=== PATIENT | female | born 1990 | race Caucasian/White ===

== ENCOUNTER 2021-10-31 06:53 | Inpatient (IN) | payer BC ==
[~2021-10-31 06:53] MED LIST: Lidocaine 1.5% with EPINEPHrine 1:200,000 5 ML Amp ONE
[2021-10-31] MEDS ORDERED: Ondansetron 4 MG/2 ML SDV IVPUSH PRN (07:49)
[2021-10-31] MEDS ORDERED: Acetaminophen 325 MG Tab PO PRN (07:49)
[2021-10-31] MEDS ORDERED: Lidocaine 1% 50 ML MDV INJECT ONE (07:49)
[2021-10-31] MEDS ORDERED: Nalbuphine 10 MG/1 ML Vial IVPUSH PRN (07:49)
[2021-10-31] MEDS ORDERED: Oxytocin/Lactated Ringers 10 UNIT/1,000 ML BAG IV SCH ×2 (08:00)
[2021-10-31] MEDS ORDERED: fentaNYL 100 MCG/2 ML SDV EPIDUR PRN (08:27)
[2021-10-31] MEDS ORDERED: diphenhydrAMINE 50 MG/ML SDV IVPUSH PRN (08:27)
[2021-10-31] MEDS ORDERED: ePHEDrine 50 MG/ML SDV IVPUSH PRN (08:27)
[2021-10-31] MEDS: Lactated Ringers 1,000 ML IV SCH ×3 (08:36→15:48)
[2021-10-31] MEDS ORDERED: Sodium Chloride 0.9% 10 ML Syringe FLUSH SCH (09:00)
[2021-10-31] MEDS: Bupivacaine/fentaNYL/NS 100 ML Bag EPIDUR PRN ×2 (14:12→22:30)
[2021-10-31] MEDS ORDERED: Benzocaine/Menthol 20%-0.5% Spray 78 GM Cannister TOP PRN (23:27)
[2021-10-31] MEDS: Witch Hazel Medicated Pads 40/Jar TOP PRN (23:55)
[2021-10-31] MEDS: Ibuprofen 600 MG Tab PO PRN (23:56)
[2021-11-01] MEDS: Ibuprofen 600 MG Tab PO PRN ×3 (04:10→20:20)
[2021-11-01] MEDS: Acetaminophen 325 MG Tab PO PRN ×3 (04:10→23:02)
[2021-11-01] MEDS ORDERED: Ferrous Sulfate 324 MG Tab.EC PO SCH (09:00)
[2021-11-01] MEDS: Docusate Sodium 100 MG Cap PO SCH ×2 (15:36→20:21)
[2021-11-01] MEDS: Prenatal Multivitamin with Calcium/Folic Acid/Iron Tab PO SCH (15:36)
[2021-11-01] MEDS ORDERED: Montelukast 10 MG Tab PO SCH (21:00)
[2021-11-02] MEDS: Ibuprofen 600 MG Tab PO PRN (06:59)
[2021-11-02] MEDS: Witch Hazel Medicated Pads 40/Jar TOP PRN (08:35)
[2021-11-02] MEDS: Prenatal Multivitamin with Calcium/Folic Acid/Iron Tab PO SCH (13:41)
[2021-11-02] MEDS: Docusate Sodium 100 MG Cap PO SCH (13:41)
== END 2021-11-02 12:15 | disposition home or self-care (01) | DRG 560 ==
LOC: JD.OB 06:53 → OBSVTOIN 22:44 → JD.OB 22:44
PROVIDERS: ADMIT Obstetrics & Gynecology; ATTEND Obstetrics & Gynecology
PROC: 10E0XZZ Delivery of Products of Conception, External Approach (ICD-10-PCS; principal; 2021-10-31)
PROC: 10907ZC Drainage of Amniotic Fluid, Therapeutic from Products of Conception, Via Natural or Artificial Opening (ICD-10-PCS; 2021-10-31)
PROC: 3E033VJ Introduction of Other Hormone into Peripheral Vein, Percutaneous Approach (ICD-10-PCS; 2021-10-31)
PROC: 0W8NXZZ Division of Female Perineum, External Approach (ICD-10-PCS; 2021-10-31)
PROC: 3E0R3BZ Introduction of Anesthetic Agent into Spinal Canal, Percutaneous Approach (ICD-10-PCS; 2021-10-31)
PROC: 00HU33Z Insertion of Infusion Device into Spinal Canal, Percutaneous Approach (ICD-10-PCS; 2021-10-31)
DX: O99.344 Other mental disorders complicating childbirth (principal); Z37.0 Single live birth; O98.52 Other viral diseases complicating childbirth; U07.1 COVID-19; F41.9 Anxiety disorder, unspecified; F32.A Depression, unspecified; O99.214 Obesity complicating childbirth; O99.52 Diseases of the respiratory system complicating childbirth; J45.909 Unspecified asthma, uncomplicated; Z3A.40 40 weeks gestation of pregnancy
CPT/HCPCS: 01967; 36415; 51702; 59025; 59409; 85025; 86592; A9270-GY; J2590; J3010; J7120; U0002

== ENCOUNTER 2022-01-05 09:50 | Day surgery (SDC) | payer BC ==
[~2022-01-05 09:50] MED LIST changes: +Lactated Ringers 1,000 ML IV SCH; +Lidocaine 1%/Sod Bicarbonate in NS 8.4% 1 ML Syringe IDERM PRN; -Lidocaine 1.5% with EPINEPHrine 1:200,000 5 ML Amp ONE; +Sodium Chloride 0.9% 10 ML Syringe FLUSH PRN; +Sodium Chloride 0.9% 10 ML Syringe FLUSH SCH
[2022-01-05] MEDS ORDERED: Bupivacaine 0.5%/EPINEPHrine 1:200,000 50 ML MDV ONE (12:16)
[2022-01-05] MEDS ORDERED: Rocuronium 50 MG/5 ML Vial ONE (13:15)
[2022-01-05] MEDS ORDERED: Lidocaine 1% 4 ML ONE (13:15)
[2022-01-05] MEDS ORDERED: Propofol 200 MG/20 ML SDV ONE (13:15)
[2022-01-05] MEDS ORDERED: Ondansetron 4 MG/2 ML SDV ONE ×2 (13:15→14:02)
[2022-01-05] MEDS ORDERED: Midazolam 1 MG/ML 2 ML SDV ONE (13:16)
[2022-01-05] MEDS ORDERED: fentaNYL 250 MCG/5 ML SDV ONE (13:16)
[2022-01-05] MEDS ORDERED: ePHEDrine 50 MG/ML SDV ONE (13:58)
[2022-01-05] MEDS ORDERED: Dexamethasone 4 MG/ML 5 ML MDV ONE (14:12)
[2022-01-05] MEDS ORDERED: ceFAZolin 1 GM Vial ONE (14:22)
[2022-01-05] MEDS ORDERED: HYDROmorphone 0.5 MG/0.5 ML Syringe IVPUSH PRN (14:48)
[2022-01-05] MEDS ORDERED: Ondansetron 4 MG/2 ML SDV IVPUSH PRN (14:48)
[2022-01-05] MEDS ORDERED: fentaNYL 100 MCG/2 ML SDV IVPUSH PRN (14:48)
[2022-01-05] MEDS ORDERED: oxyCODONE 5 MG Tab PO ONE (15:17)
== END 2022-01-05 16:55 | disposition home or self-care (01) ==
LOC: JD.SDS 09:50
PROVIDERS: ATTEND Surgery
DX: K80.11 Calculus of gallbladder with chronic cholecystitis with obstruction (principal); F41.9 Anxiety disorder, unspecified; F32.A Depression, unspecified; E66.3 Overweight; E55.9 Vitamin D deficiency, unspecified; Z88.1 Allergy status to other antibiotic agents; Z88.0 Allergy status to penicillin; Z91.030 Bee allergy status; Z79.899 Other long term (current) drug therapy; Z98.890 Other specified postprocedural states
CPT/HCPCS: 47562; 81025; A9270; J0690; J1100; J2250; J2405; J2704; J2710; J3010; J3490; J7120; 00790

== ENCOUNTER 2024-02-19 07:11 | Inpatient (IN) | payer OTHER ==
[~2024-02-19 07:11] MED LIST changes: +Bupivacaine 0.25% 10 ML SDV ONE; -Lactated Ringers 1,000 ML IV SCH; -Lidocaine 1%/Sod Bicarbonate in NS 8.4% 1 ML Syringe IDERM PRN; -Sodium Chloride 0.9% 10 ML Syringe FLUSH PRN; -Sodium Chloride 0.9% 10 ML Syringe FLUSH SCH
[2024-02-19] MEDS ORDERED: Ondansetron 4 MG/2 ML SDV IVPUSH PRN (07:25)
[2024-02-19] MEDS ORDERED: Nalbuphine 10 MG/ML Syringe IVPUSH PRN (07:25)
[2024-02-19] MEDS ORDERED: Lidocaine 1% 50 ML MDV INJECT PRN (07:25)
[2024-02-19] MEDS ORDERED: Oxytocin/Lactated Ringers 30 UNIT/500 ML BAG IV SCH (07:30)
[2024-02-19] MEDS ORDERED: ePHEDrine 50 MG/ML SDV IVPUSH PRN (07:39)
[2024-02-19] MEDS ORDERED: diphenhydrAMINE 50 MG/ML SDV IVPUSH PRN (07:39)
[2024-02-19] MEDS: Lactated Ringers 1,000 ML IV SCH (07:57)
[2024-02-19] MEDS: Oxytocin/Lactated Ringers 30 UNIT/500 ML BAG IV SCH (07:57)
[2024-02-19 08:05] LABS: BASOPHILS PERCENT AUTO 0.3 % (0.0-1.0); EOSINOPHILS PERCENT AUTO 0.6 % (0.0-6.0); HEMATOCRIT 34.4 % (37.0-47.0); IMMATURE GRAN ABSOLUTE AUTO 0.05 K/mm3 (0.00-0.05); IMMATURE GRAN PERCENT AUTO 0.7 % (0.0-0.4); LYMPHOCYTES ABSOLUTE AUTO 1.6 K/mm3 (1.0-4.8); LYMPHOCYTES PERCENT AUTO 21.5 % (24.0-44.0); MEAN CORPUSCULAR HGB CONC 34.9 g/dl (32.0-36.0); MEAN CORPUSCULAR VOLUME 88.9 fl (83.0-99.0); MEAN PLATELET VOLUME 9.1 fl (9.4-12.3); MONOCYTES ABSOLUTE AUTO 0.6 K/mm3 (0.0-0.8); MONOCYTES PERCENT AUTO 7.6 % (0.0-8.0); NEUTROPHILS ABSOLUTE AUTO 5.1 K/mm3 (1.8-7.7); NEUTROPHILS PERCENT AUTO 69.3 % (41.0-71.0); PLATELET COUNT,PLT 237 K/mm3 (150-400); RED BLOOD CELL COUNT 3.87 M/mm3 (4.10-5.30); WHITE BLOOD CELL COUNT,WBC 7.27 K/mm3 (3.9-11.3)
[2024-02-19] MEDS: Bupivacaine/fentaNYL/NS 100 ML Bag EPIDUR PRN (12:16)
[2024-02-19] MEDS: fentaNYL 100 MCG/2 ML SDV EPIDUR PRN (12:16)
[2024-02-19] MEDS ORDERED: Ibuprofen 600 MG Tab PO PRN (16:18)
[2024-02-19] MEDS ORDERED: Acetaminophen 325 MG Tab PO PRN (16:18)
[2024-02-19] MEDS ORDERED: Docusate Sodium 100 MG Cap PO PRN (16:18)
[2024-02-19] MEDS: Benzocaine/Menthol 20%-0.5% Spray 78 GM Cannister TOP PRN (18:04)
[2024-02-19] MEDS: Witch Hazel Medicated Pads 40/Jar TOP PRN (18:04)
[2024-02-20] MEDS: Citalopram 20 MG Tab PO SCH (18:16)
== END 2024-02-20 18:15 | disposition home or self-care (01) | DRG 807 ==
LOC: JD.OB 07:11 → OBSVTOIN 15:46 → JD.OB 15:47
PROVIDERS: ADMIT Obstetrics & Gynecology; ATTEND Obstetrics & Gynecology
PROC: 10E0XZZ Delivery of Products of Conception, External Approach (ICD-10-PCS; principal; 2024-02-19)
PROC: 0KQM0ZZ Repair Perineum Muscle, Open Approach (ICD-10-PCS; 2024-02-19)
PROC: 10907ZC Drainage of Amniotic Fluid, Therapeutic from Products of Conception, Via Natural or Artificial Opening (ICD-10-PCS; 2024-02-19)
PROC: 3E033VJ Introduction of Other Hormone into Peripheral Vein, Percutaneous Approach (ICD-10-PCS; 2024-02-19)
PROC: 3E0R3BZ Introduction of Anesthetic Agent into Spinal Canal, Percutaneous Approach (ICD-10-PCS; 2024-02-19)
PROC: 00HU33Z Insertion of Infusion Device into Spinal Canal, Percutaneous Approach (ICD-10-PCS; 2024-02-19)
DX: O70.1 Second degree perineal laceration during delivery (principal); Z37.0 Single live birth; O69.81X0 Labor and delivery complicated by cord around neck, without compression, not applicable or unspecified; Z3A.39 39 weeks gestation of pregnancy; Z88.0 Allergy status to penicillin; Z98.890 Other specified postprocedural states; Z90.49 Acquired absence of other specified parts of digestive tract
CPT/HCPCS: 36415; 51702; 59025; 59409; 85025; 86592; J3010; J3490; J7120; J7999